=== PATIENT | male | born 1950 | race Caucasian/White ===

== ENCOUNTER 2016-09-14 11:37 | Inpatient (IN) | payer MEDICARE ==
[~2016-09-14] VITALS: Ht 185.4 cm; Wt 132.2 kg
[2016-09-14] MEDS ORDERED: FLOMAX0.4 MG PO (11:51)
[2016-09-14] MEDS ORDERED: LISINOPRIL20 MG (11:52)
[2016-09-14] MEDS ORDERED: ASPIR 8181 MG PO (11:52)
[2016-09-14] MEDS ORDERED: GLUCOSAMINE HC500 MG PO (11:52)
[2016-09-14] MEDS ORDERED: MULTI-DAY VITA1 EACH PO (15:30)
[2016-09-14] MEDS ORDERED: FISH OIL 1,0001 EAC2 NG (15:30)
--- NOTE | 2016-09-14 15:30 | NUR ---
PATIENT ARRIVED TO CCU AT 1500 FROM ER. PT IS TRAVELING FROM THE [facility] AND HEADING BACK TO [place]. PT HAS HAD A PREVIOUS EPISODE OF CELLULITIS TO HIS LOWER LEGS AND WAS AWARE OF THE SYMPTOMS. PT HAS HAD A FEVER HIGH 103 TODAY WHILE IN THE ER. PT ARRIVES WITH HIS 4TH LITER OF NORMAL SALINE INFUSING, AND 2500 MG IV VANCO INFUSING. PT HAS ONE IV SITE UPON ADMISSION. 2ND SITE OBTAINED EASILY ON RIGHT LOWER FOREARM. PT'S FRANKLIN AT BEDSIDE WITH PATIENT. BLOOD PRESSURES ARE SOFT UPON ADMISSION. REPEAT LACTIC ACID DRAWN AT 1500. MONITORING BP CLOSELY.
--- NOTE | 2016-09-14 17:26 | NUR ---
CALLED AND UPDATED DR. KHAN ON PT'S CONDITION. ORDER REC'D TO GIVE IV MAG DUE TO MAG LEVEL BEING 1.4. PT HAS NOT REC'D 4 L BOLUS OF NS AND IS NOW RECEIVING LR AT 200 ML/HR. PT HAS BEEN RESTING/SLEEPING. DINNER ORDERED FOR PATIENT. PT USES CALL LIGHT AND USES URINAL TO VOID FOR 250. HEART RATE CURRENTLY 80s. CONTINUE TO MONITOR.
--- NOTE | 2016-09-14 23:10 | NUR ---
DR KHAN CALLED AT 2043 TO UPDATE ON PT HR, U/O, BP. PT DIAPHORETIC AND COOL AT CHANGE OF SHIFT, VERY DROWSY, BUT AWAKENS AND RESPONSIVE. NO LONGER DIAPHORETIC AT THIS MOMEMENT, HOWEVER COMPLAINS OF CHILLS. TEMP 97.9 ORALLY. ADMINISTERED TYLENOL 500MG PO.
--- NOTE | 2016-09-15 00:45 | NUR ---
PT NO LONGER C/O CHILLS. SKIN WARM, DRY. STARTED VANCOMYCIN INFUSION. PT TEMP 98.2. INSTRUCTED TO USE CALL LIGHT FOR ASSISTANCE WITH URINAL OR FOR ALL OTHER NEEDS.
--- NOTE | 2016-09-15 04:32 | NUR ---
VS AND ASSESSMENT COMPLETED. PT R RIVERA/ANKLE SLIGHTLY MORE SWOLLEN.
--- NOTE | 2016-09-15 05:08 | NUR ---
PT REQUESTED SOMETHING TO HELP WITH CHEST TIGHTNESS FROM SHIVERING. GIVEN 30MG TORRADOL IV.
--- NOTE | 2016-09-15 10:03 | NUR ---
PATIENT TO BE TRANSFERRED TO MED SURG ROOM 122. PT AND UPDATED ON THIS MOVE.
--- NOTE | 2016-09-15 10:17 | NUR ---
REPORT GIVEN TO JARED FAM ON MED/SURG. PT BEING MOVED TO 122. PT IS AMBULATORY TO TRANSFER. ALL BELONGINGS TAKEN WITH PATIENT.
--- NOTE | 2016-09-15 10:50 | NUR ---
PT ARRIVED TO ROOM 122 AT 1030. SITTING IN RECLINER. WAITING FOR TO RETURN. NO NEEDS AT THIS TIME. WILL SET PT UP TO SHOWER NOW.
[2016-09-15] MEDS ORDERED: LISINOPRIL-HCT1 EACH PO (12:45)
[2016-09-15] MEDS ORDERED: MOBIC7.5 MG PO (12:46)
[2016-09-15] MEDS ORDERED: NEURONTIN100 MG PO ×2 (12:50→13:01)
[2016-09-15] MEDS ORDERED: TERAZOSIN HCL1 MG PO (12:50)
--- NOTE | 2016-09-15 13:22 | NUR ---
MED REC COMPLETE WITH [facility] REFILL HISTORY IN [place] AND PATIENT INTERVIEW. PATIENT TAKES GABAPENTIN AND TAMSULOSIN DIFFERENT THAN THE OFFICIAL DIRECTIONS. THIS INFORMATION IS REFLECTED ON THE MED REC.
--- NOTE | 2016-09-15 13:50 | NUR ---
HAD PATIENT SCOOT UP BED.ELEVATED RIGHT LEG WITH TWO PILLOWS. PATIENT SITTING STRAIGHT UP EATING LUNCH. WARM BLANKET AND FRESH ICE WATER GIVEN. BY HIS SIDE. CALL BUTTON IN REACH. NO OTHER NEEDS AT THIS TIME.
--- NOTE | 2016-09-15 14:06 | NUR ---
PT FEELS COLD. ASKING FOR WARM BLANKETS. AT BEDSIDE. WARM BLANKET PROVIDED. TEMP 98.9 ORALLY.
--- NOTE | 2016-09-15 16:34 | NUR ---
PT HAS FEVER OF 101.1. TYLENOL GIVEN. PT FEELS WARM TO TOUCH.
--- NOTE | 2016-09-15 17:31 | NUR ---
room air. independent in room. at bedside. right leg cellulitis. elevate extremity. vanco/ rocephin. IV x2. loose stools today-- probiotic started. febrile this afternoon. tylenol given.
--- NOTE | 2016-09-15 18:04 | NUR ---
notified hospitalist of low urine output. 100ml out from [id number]. orders received through [facility]
--- NOTE | 2016-09-15 21:27 | NUR ---
PT ASSESSMENT COMPLETE. PT DENIES ANY SOB, PAIN, N/V. IV FLUIDS INFUSING WITHOUT DIFFICULTY. PT IN GOOD SPIRITS THIS EVENING, AT BEDSIDE. RIGHT LOWER EXTREMITY WARM/RED/SWOLLEN, ELEVATED ON PILLOWS, MARKED WITH PEN TO MONITOR REDNESS MORE CLOSELY. CALL LIGHT WITHIN REACH. PT DENIES ANY FURTHER NEEDS AT THIS TIME.
--- NOTE | 2016-09-15 22:26 | NUR ---
CALLED DR KHAN REGARDING LOW URINE OUTPUT OF 150 MLS OVER 4 HOURS, RECEIVED NEW ORDERS FOR 1 LITER LR BOLUS OVER 2 HOURS AND NORCO PRN FOR PAIN.
--- NOTE | 2016-09-16 00:08 | NUR ---
PT SLEEPING, RR EVEN AND UNLABORED. PT APPEARS COMFORTABLE AT THIS TIME. IV FLUIDS INFUSING WITHOUT DIFFICULTY. CALL LIGHT WITHIN REACH.
--- NOTE | 2016-09-16 02:26 | NUR ---
CALLED DR KHAN AND UPDATED ON ADEQUATE URINE OUTPUT OVER LAST 4 HOURS, NEW ORDERS TO DECREASE IVF TO 125 MLS/HR
--- NOTE | 2016-09-16 04:05 | NUR ---
PT SLEEPING, RR EVEN AND UNLABORED. PT APPEARS COMFORTABLE AT THIS TIME. IV FLUIDS INFUSING WITHOUT DIFFICULTY. CALL LIGHT WITHIN REACH.
--- NOTE | 2016-09-16 07:15 | NUR ---
BEDSIDE HANDOFF REPORT RECEIVED FROM CLINICAL LAB ASSISTANT RN. PT SITTING IN CHAIR. IV FLUIDS INFUSING AT 125 ML/HR. REDNESS TO RLE RECEEDING FROM OUTLINE, WARM TO TOUCH. PT DENIES NEEDS AT THIS TIME.
--- NOTE | 2016-09-16 08:00 | NUR ---
PT SITTING IN CHAIR. PT DENIES PAIN. LUNG SOUNDS CLEAR, ON ROOM AIR, DENIES SOB. PT REPORT OF IMPROVED APPETITE, ATE 100% OF BREAKFAST. PT BOWEL TONES ACTIVE, DENIES NAUSEA. WITH WITH RLE SWELLING AND REDNESS, RECEEDING FROM OUTLINE, PT STATES IT IS LOOKING BETTER. PT VOICING CONCERN TO DISHCARGE OTDAY, DISCUSSED PLAN OF CARE WITH PT AND . IV FLUIDS INFUSING LR AT 125 ML/HR. PT DENIES NEEDS AT THIS TIME.
--- NOTE | 2016-09-16 08:49 | NUR ---
patient up to shower. clean linens on bed. oral care done by patient. in room.
--- NOTE | 2016-09-16 10:15 | NUR ---
PT RESTING IN BED, LEG ELEVATED. IV LINES FLUSHED, PATENT. IV FLUIDS RESUMED AFTER SHOWER. PT DENIES NEEDS AT THIS TIME.
--- NOTE | 2016-09-16 11:23 | NUR ---
I STOPPED TO SEE THIS PT BUT HE WAS SLEEPING SO I LEFT.
[2016-09-16] MEDS ORDERED: BACTRIM DS TAB1 EACH PO (12:45)
== END 2016-09-16 13:35 | disposition home or self-care (01) | DRG 872 ==
LOC: ED 11:37 → CCU 14:34 → MS 09-15 10:25
PROVIDERS: ADMIT Internal Medicine
DX: A41.89 Other specified sepsis (principal); L03.115 Cellulitis of right lower limb; R65.20 Severe sepsis without septic shock; G47.34 Idiopathic sleep related nonobstructive alveolar hypoventilation; G47.33 Obstructive sleep apnea (adult) (pediatric); N40.0 Benign prostatic hyperplasia without lower urinary tract symptoms; I10 Essential (primary) hypertension; E66.9 Obesity, unspecified; Z68.38 Body mass index [BMI] 38.0-38.9, adult; Z79.82 Long term (current) use of aspirin; Z79.899 Other long term (current) drug therapy
CPT/HCPCS: 36415; 71010; 80048; 80053; 80202; 81001; 83605; 83735; 85025; 85610; 85730; 87040; 87077; 87186; J0696; J1650; J1885; J2405; J3370; J3475; J7030; J7060; J7120